=== PATIENT | female | born 1970 | race Caucasian/White ===

== ENCOUNTER 2017-10-02 09:19 | Emergency (ER) | payer BC, OTHER ==
[2017-10-02 09:45] LABS: Hematocrit 42.1 % (37.0-47.0); Hemoglobin 14.1 gm/dL (12.5-16.0); Mean Cell Volume 88.1 fl (78-100); Mean Corpuscular Hemoglobin 29.5 pg (27-31); Mean Corpuscular Hgb Conc 33.5 g/dl (32-36); Mean Platelet Volume 9.1 fl (6.0-9.5); Neutrophil # 7.9 K/mm3 (1.3-6.0); Neutrophil % 70.4 % (42-75.0); Platelet Count 398 K/mm3 (150-450); Red Blood Count 4.78 M/mm3 (4.2-5.4); Red Cell Distribution Width 13.3 % (11.5-14.0); White Blood Count 11.2 K/mm3 (4.0-10.5)
[2017-10-02 10:02] LABS: Urine Bilirubin Negative (NEGATIVE); Urine Blood Negative /ul (NEGATIVE); Urine Ketone 5 mg/dL (NEGATIVE); Urine Nitrite Negative (NEGATIVE); Urine Protein Negative (NEGATIVE); Urine Urobilinogen Normal (NORMAL)
[2017-10-02] MEDS ORDERED: DICYCLOMINE HCL 10 MG/ML AMPUL IM ONE ×2 (10:07→10:12)
[2017-10-02 10:10] LABS: Urine Appearance Clear; Urine Bacteria 1+; Urine Color Yellow; Urine Mucus Few - 1+; Urine RBC None Seen /hpf (0-5); Urine WBC 0-5 /hpf (0-5)
[2017-10-02 10:13] LABS: Albumin * 3.8 gm/dl (3.4-5.0); Anion Gap 10.6 mmol/L (6.8-13.8); BUN/Creatinine Ratio 15.1 (9.0-21.6); Bilirubin, Total 0.3 mg/dL (0.0-1.1); Ca. Corrected For Albumin 9.4 mg/dL (8.4-10.2); Calcium * 9.6 mg/dL (7.9-10.9); Carbon Dioxide 29.1 mmol/L (24-32.6); Potassium 3.7 mmol/L (3.4-4.6); Total Protein 8.4 gm/dL (6.2-8.2)
[2017-10-02] MEDS: DICYCLOMINE HCL 10 MG/ML AMPUL IM ONE (10:15)
--- NOTE | 2017-10-02 10:35 | ERNOTE ---
Abdominal HPI - Narrative Date of Service: 10/02/17 - General Chief Complaint: Abdominal Pain Time Seen by Provider: 10/02/17 09:51 Source: patient Exam Limitations: no limitations - Immun/Allergies/Home Medications Immunizatons: IMMUNIZATION HX Immunizations Up to Date No History of Influenza Vaccine No Hx Pneumococcal Vaccination No Allergies/Adverse Reactions: Allergies Penicillins Allergy (Verified 10/02/17 09:28) Home Medications: HOME MEDICATIONS Cyclobenzaprine HCl [Flexeril] 10 mg PO TID PRN #30 tab 10/02/17 [Last Taken Unknown] Naproxen [Naprosyn] 500 mg PO BID PRN #60 tab 10/02/17 [Last Taken Unknown] Pantoprazole Sodium [Protonix] 20 mg PO DAILY 10/02/17 [Last Taken Unknown] - History of Present Illness Narrative: Pt. comes in with C/o RUQ pain for 2 hours. Pt. states that it began an hour after she ate and denies any fevers, SOB, CP, NVD, alleviating factors, or prehospital treatment. Pt. states that it is worsened when she moves or lifts something. Timing: intermittent Quality: aching Activities at Onset: none Modifying Factors - (Improves): Present: other - denies Modifying Factors - (Worsens): Present: movement Associated Symptoms: Present: denies symptoms Prior Abdominal Problems: Present: none Prior Treatment: Absent: recently seen, treated by physician, recently hospitalized, currently on antibiotics Review of Systems - Review of Systems Constitutional: Present: no symptoms reported. Absent: fever, chills, weakness , fatigue, malaise EYE: Present: no symptoms reported ENT: Present: no symptoms reported. Absent: nose pain, nose congestion, nasal drainage Respiratory: Present: no symptoms reported. Absent: shortness of breath, cough , wheezing Cardiology: Present: no symptoms reported. Absent: chest pain, palpitations, edema Gastrointestinal/Abdominal: Present: abdominal pain - LUQ. Absent: nausea, vomiting, diarrhea Genitourinary: Present: no symptoms reported Musculoskeletal: Present: no symptoms reported. Absent: back pain, joint pain Skin: Present: no symptoms reported. Absent: rash, change in hair/nails Neurological: Present: no symptoms reported. Absent: headache, dizziness/light- headedness, numbness, tingling All Other Systems: All systems neg except as marked - Patient's Past Medical History Patient History - Medical: No pertinent hx Patient History - Cardiac/Respiratory: Asthma, Hypertension Patient History - Cancer: No Hx of Cancer Patient History - Surgical Procedures: No surgical history Patient History - Other: None - Social History Living Situations: home Psych History: No pertinent hx Smoking Status: Never smoker Have you smoked in the past 12 months: No Do you dip or chew tobacco: No Alcohol Use: occasionally Drug Use: none - Immunizations Immunizations Up to Date: No Hx Pneumococcal Vaccination: No History of Influenza Vaccine: No Physical Exam - Physical Exam General Appearance: Present: wd/wn, alert, no apparent distress Head Exam: Present: normal inspection, no evidence of injury Eye Exam: Normal inspection: bilateral Ears, Nose, Throat: Present: normal ENT inspection, normal pharynx Neck: Present: normal inspection, nontender, supple, full range of motion. Absent: lymphadenopathy (R), lymphadenopathy (L) Respiratory: Present: no respiratory distress, normal breath sounds, no accessory muscle use, chest nontender, lungs clear Cardiovascular/Chest: Present: regular rate, rhythm, no murmur, normal peripheral pulses Gastrointestinal/Abdominal: Present: normal bowel sounds, nondistended, soft, no organomegaly, tenderness - LUQ Back Exam: Present: normal inspection, normal range of motion, no CVA tenderness , no vertebral tenderness Extremity Exam: Present: normal inspection, non-tender, normal range of motion, no edema Neurological Exam: Present: alert, oriented, normal mood/affect, no motor/ sensory deficits Skin Exam: Present: normal color, warm/dry. Absent: pallor, skin rash ED Progress - Date and Time Seen: Date and Time: 10/02/17 10:54 Pt. feels that pain is likely muscle spasm and does not want abdominal CT at this time but educated pt that if this does not resolve that she may need further imaging. Pt. is asymptomsatic with elevated BP so she would like to discuss this with her PCP as well. - Vital Signs Patient's Vital Signs:: I have reviewed the patient's vital signs. Vital Signs: Vital Signs 10/02/17 09:23 Temperature 36.7 C Pulse Rate 74 Respiratory 16 Rate Blood Pressure 172/110 O2 Sat by Pulse 96 Oximetry - X-Ray X-Ray #1 X-Ray: abdomen Interpretation: Reviewed by me X-ray Comments: non-specific bowel gas pattern - Progress/Reassessment Chief Complaint: Abdominal Pain Progress:: Improved Departure Clinical Impression: Abdominal pain Qualifiers: Abdominal location: left upper quadrant Qualified Code(s): R10.12 - Left upper quadrant pain - Departure Disposition: Home self-care Condition: Good Instructions: Muscle Cramps and Spasms, [id number], Form - Excuse from Work, School, or Physical Activity Additional Instructions: Please follow up with primary provider in 2-3 days if not improved please take the day off to rest and relax. Referrals: Isis Funk, [facility] [Primary Care Provider] - Prescriptions: Cyclobenzaprine HCl [Flexeril] 10 mg PO TID PRN #30 tab PRN Reason: MUSCLE SPASMS Naproxen [Naprosyn] 500 mg PO BID PRN #60 tab PRN Reason: Pain
[2017-10-02 10:55] VITALS: BP 160/92
[2017-10-02] MEDS ORDERED: KETOROLAC TROMETHAMINE 60 MG/2 ML VIAL IM ONE (10:55)
[2017-10-02] MEDS: KETOROLAC TROMETHAMINE 60 MG/2 ML VIAL IM ONE (10:57)
== END 2017-10-02 11:11 | disposition home or self-care (01) ==
LOC: ER 09:19
DX: R10.12 Left upper quadrant pain (principal)